=== PATIENT | male | born 1965 | race Caucasian/White ===

== ENCOUNTER 2017-02-09 07:30 | Inpatient (IN) | payer OTHER ==
[2017-02-16] MEDS ORDERED: LR 1,000 ML IV ONE (06:30)
[2017-02-16] MEDS ORDERED: THROMBIN (BOVINE) 5,000 UNIT VIAL TP ONE (06:33)
[2017-02-16] MEDS ORDERED: BUPIVACAINE/EPI 0.25% 30 ML SDV ONE (06:34)
[2017-02-16] MEDS ORDERED: BACITRACIN 50,000 UNITS/10 ML SYR IRR ONE (06:34)
[2017-02-16] MEDS ORDERED: MIDAZOLAM 2 MG/2 ML VIAL ONE (07:05)
[2017-02-16] MEDS ORDERED: PROPOFOL/EMULSION 500 MG/50 ML BOTTLE IV ONE ×3 (07:08→09:16)
[2017-02-16] MEDS ORDERED: fentaNYL 250 MCG/5 ML INJ ONE (07:20)
[2017-02-16] MEDS ORDERED: TEMAZEPAM 15 MG CAP PO PRN (07:27)
[2017-02-16] MEDS ORDERED: HYDROmorphONE/DILAUDID 6 MG/30 ML PCA IV PRN (07:27)
[2017-02-16] MEDS ORDERED: BISACODYL 10 MG SUPP PR PRN (07:27)
[2017-02-16] MEDS ORDERED: GABAPENTIN 300 MG CAP PO PRN (07:27)
[2017-02-16] MEDS ORDERED: POLYETHYLENE GLYCOL 3350 17 GM PKT PO PRN (07:27)
[2017-02-16] MEDS ORDERED: MAGNESIUM HYDROXIDE 30 ML UDCUP PO PRN (07:27)
[2017-02-16] MEDS ORDERED: diphenhydrAMINE 25 MG CAP PO PRN ×2 (07:27)
[2017-02-16] MEDS ORDERED: DIAZEPAM 10 MG/2 ML SYR IVP PRN (07:27)
[2017-02-16] MEDS ORDERED: ONDANSETRON 4 MG/2 ML VIAL IVP PRN (07:27)
[2017-02-16] MEDS ORDERED: traMADol 50 MG TAB PO PRN (07:27)
[2017-02-16] MEDS ORDERED: ALPRAZolam 0.5 MG TAB PO PRN (07:27)
[2017-02-16] MEDS ORDERED: NALOXONE HCL 0.4 MG/ML INJ IVP PRN (07:27)
[2017-02-16] MEDS ORDERED: ACETAMINOPHEN 325 MG TAB PO PRN (07:27)
[2017-02-16] MEDS ORDERED: NS W/ 20 KCl/L 1,000 ML IV SCH (07:30)
[2017-02-16] MEDS ORDERED: ceFAZolin 2 GM/DEXTROSE 100 ML IV ONE (08:00)
[2017-02-16] MEDS ORDERED: fentaNYL 100 MCG/2 ML INJ ONE ×2 (10:57→11:46)
[2017-02-16] MEDS ORDERED: HYDROmorphONE/DILAUDID 1 MG/ML SYR ONE ×2 (11:46→12:13)
--- NOTE | 2017-02-16 12:19 | SOAPPROG ---
SOAP Progress Note Assessment/Plan: Post Op Visit: S: Awake and alert. NAD. Pt with expected lower back pain O: AFVSS/PERRLA/EOMI no droop CN 2-12 grossly intact +lt touch 5/5 BUE/BLE = CDI ARLETTE in place A/P: 51 yo male that is s/p removal of Coflex hardware with new L4/5 TLIF -post op orders in -brace on when out of bed -pt seen by Dr Rosenthal -call with any questions or concerns 02/16/17 12:16 Objective: Microbiology 02/16/17 08:20 Gram Stain - Final Other - Eswab ICD10 Worksheet Patient Problems: Problems Problem Status Onset Arthrodesis status Acute Hardware failure Acute Lumbar radicular pain Acute Lumbar stenosis Acute - ICD10 Problem Qualifiers (1) Lumbar radicular pain (2) Lumbar stenosis (3) Hardware failure (4) Arthrodesis status
--- NOTE | 2017-02-16 13:09 | GOP ---
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 POSTOPERATIVE DIAGNOSIS: Failure posterior interspinous process Coflex device with recurrent bilate ral recess stenosis at L4-5, right greater than left foraminal stenosis L4-5, chronic right lumbosac ral radiculopathy, lumbar spondylosis, lumbar degenerative disk disease, and lumbar facet arthropath y. PROCEDURE PERFORMED: FINDINGS: ESTIMATED BLOOD LOSS: 100 cc. INDICATIONS: The patient is a 51-year-old gentleman, who had an interspinous process device placed at L4-5 and continued to have bffmh-mbbtfra-vdsg-left radicular symptoms. An MRI demonstrated the a ppearance of bilateral recess stenosis at L4-5, and vwuoc-rgplfrh-kqke-left foraminal stenosis. CT scan demonstrated lysis of the L5 spinous process where the device had been properly applied. There was no fracture of the spinous process and no clear migration of the interspinous process device. It was in the correct position; there had simply been osteolysis around the L5 portion of the clamp. I suggested removal of the device as well as a bilateral decompression at L4-5, as well as a poste rolateral and intervertebral arthrodesis. This is the best way to achieve bony union at the L4-5 se gment, as well as decompress the exiting foraminal nerve roots as well as the traversing L5 roots in the spinal canal. The risk of adjacent segment disease and nerve injury was discussed. He underst ood the surgery could fail to alleviate any of his symptoms. He wanted to proceed despite these ris ks. DESCRIPTION OF PROCEDURE: The patient was taken to the operating room and placed in supine position . General anesthesia was begun. He was flipped prone onto the Chente table. Care was taken to pa d all points of contact. His back was sterilely prepped and draped in the usual fashion. A 4.5 cm scar was located over the L4-5 interspace. We opened this prior scar and extended it for a distance of 1.5 cm total. We used a plasma blade to do the dissection down the L4-L5 spinous process, and a s we approached the device and entered the space around the device, there was a large amount of sero us fluid present. We cultured this fluid to rule out infection. There was no purulence or foul sme ll. I would estimate that there was about 12-15 cc of fluid. There was osteolysis at L5, and motio n of the L5 spinous processes in the teeth of the device; they were not attached to L5 whatsoever. At L4, however, the teeth were still engaging the L4 spinous process. We took an osteotome and prie d the L4 teeth away from the spinous process, and we easily delivered the entire device. We then de nuded the facet joints bilaterally at L4-5 and there was a large amount of egvfi-llpmjyp-tuam-left f acet joint fluid. Synovial fluid present in the facet joints. As we denuded these, we encountered fluid similar to what we had seen around the Coflex device itself. Of note, as well the Coflex heaven ce appeared to be seated within the interspinous process space and was properly applied in my view. It is nicely seated. We denuded the facet joints bilaterally at L4-5, decorticated the transverse processes at L4-5, and then attached the Stealth reference frame to the L4 spinous process. Perform ed an O-arm spin and, using femoral stealth stereotaxy, placed pedicle screws bilaterally at L4 and L5. We then placed 45 mm rods down between the screws and distracted significantly between L4 and L 5. This lifted the facet joints up off the arthritic superior articular process of L5. We decortic ated the facet joints on both sides. We then drilled and harvested the L4 lamina and removed most o f the lamina, preserving only the rostral large. We also drilled off the rostral arch of L5. Under the microscope, we opened the ligament flavum above the prior laminectomy, and we were able to enco unter normal dura there. As we worked our way toward the area where the Coflex been applied, there was a lot of scar tissue and this could not be from the dura. We therefore performed medi al facetectomies on each side. On the right side, we performed a complete facetectomy. We harveste d this bone for autologous grafting purposes, and we hand drilled the rostral arch of L5, fractured this off L5, and then began to peel it up off the dura. On the left-hand side, we were very success ful in doing so, and we identified essentially the virgin L5 nerve root on the left-hand side and a great decompression was obtained all the way up in the lateral recess, up underneath and toward the L4 pedicle on the left. On the right-hand side, as we began to try to deliver this bone up off the thecal sac and the L5 nerve root, we identified the L5 nerve root, but it was very firmly adherent, and the wall of the thecal sac was adherent to the bone. We simply flipped this bone up out of the lateral recess and achieved great decompression, but we left it attached to the dura. Despite our m ultiple attempts to deliver it from the dura, it could not be easily , and elected to leave it. We then mobilized the right L5 nerve root and swept it medially. All this decompression took about 100% longer than a typical laminectomy would have taken at this level. It added about 30 nimo todd to the decompression portion of the procedure for an increase in effort for the entire intervert ebral posterolateral portion of the procedure; it increased this by at least 75% by doubling the dec ompression time. We were able to mobilize the thecal sac and remove the L4-5 disk. We roughened th e subchondral bone to create arthrodesis there. It was a large disk space and we chose a 10 mm expa ndable device and inserted it under fluoroscopic guidance. We expanded it in a torque-limited way u nder fluoroscopic guidance, and we did achieve some focal segmental lordosis. We then decorticated all the remaining posterolateral bone. We placed bone morphogenic protein into the device. We used 1 mg in the disk space. We use 0.5 mg posterolaterally, and we discarded 0.5 mg. We placed bone m orphogenic protein sponges down over the posterolateral bone bilaterally, followed by bony autograft ; we had really a large amount of this. We then relaxed distraction between L4 and L5 and compresse d to try to achieve greater lordosis in that segment. Then we final tightened all the cap screws to company specification. We then placed a subfascial drain and closed the incision in multiple layer s using Vicryl sutures. The patient was reversed from anesthesia, extubated, and transferred to the recovery room in stable condition. PROCEDURE: Posterior removal of nonsegmental hardware across the L4-5 interspace, posterolateral an d intervertebral arthrodesis at L4-5 (with difficulty modifier applied) and bilateral decompressions in the context of a prior laminectomy at L4-5 (66521), placement of biomechanical intervertebral de vice L4-5, microscope, spinal stereotaxy, posterior segmental instrumentation at L4-5 with pedicle s crew fixation at L4-5, same incision bone graft harvest. COMPLICATIONS: None. /[id number]/MODL
[2017-02-16] MEDS: FAMOTIDINE 20 MG/NACL 50 ML IV SCH ×2 (14:08→21:14)
[2017-02-16] MEDS: SENNOSIDES/DOCUSATE SODIUM TAB PO SCH ×2 (14:08→21:13)
[2017-02-16] MEDS: HYDROCODONE/APAP 10/325 TAB PO PRN ×3 (14:17→21:13)
[2017-02-16] MEDS: METHOCARBAMOL 750 MG TAB PO PRN (14:17)
[2017-02-16] MEDS: HYDROmorphONE/DILAUDID 1 MG/ML SYR IVP PRN ×2 (15:53→16:30)
[2017-02-16] MEDS: DIAZEPAM 5 MG TAB PO PRN (18:23)
[2017-02-17] MEDS: DIAZEPAM 5 MG TAB PO PRN ×3 (00:41→23:50)
[2017-02-17] MEDS: HYDROCODONE/APAP 10/325 TAB PO PRN ×4 (04:20→23:50)
--- NOTE | 2017-02-17 07:48 | NEUSURGPN ---
Date of Surgery: 02/16/17 Post Op Day: 1 Assessment/Plan: 51 yo male s/p removal ofCoflex with new TLIF at L4/5 - neuro stable - pain control - remove ARLETTE drain today - postop L-spine x-rays pending - wear brace when out of bed - PT/OT - dispo: likely home tomorrow Subjective: Having pain localized to the back. No LE pain, numbness, tingling, weakness. Objective: Awake. Alert. PERRL. EOMI Muscle strength full at 5/5 Sensation intact - Physician Discussed Patient with Dr.: [facility] Physical Exam - Vitals, I&O, Labs I and O 02/16/17 02/17/17 02/18/17 05:59 05:59 05:59 Intake Total 3200 Output Total 2840 Balance 360 Weight 90.718 kg Intake: Oral (ml) 1050 IV Intake (ml) 1050 IV Infused (ml) 1100 Famotidine 20 mg/NaCl 50 50 ml @ 200 mls/hr IV Q12HRS [facility] Rx#:[id number] NS W/ 20 KCl/L 1,000 ml @ 950 75 mls/hr IV CONT [facility] Rx #:[id number] ceFAZolin 1 GM/DEXTROSE 100 50 ml @ 200 mls/hr IV Q8HRS [facility] Rx#:[id number] Output: Urine (ml) 2475 Catheter 1300 Urinal 1175 Estimated Blood Loss (ml) 100 Wound Drainage (ml) 265 Back Chente Blake 265 Other: Number of Voids Urinal 1 Bladder Scan Volume (ml) Urinal 813 Post Void Residual Scan Volume (ml) Urinal 420 Microbiology 02/16/17 08:20 Gram Stain - Final Other - Eswab Vital Signs Temp Pulse Resp BP Pulse Ox 36.6 C 61 14 104/67 95 02/17/17 07:40 02/17/17 07:40 02/17/17 07:40 02/17/17 07:40 02/17/17 07:40 ICD10 Worksheet Patient Problems: Problems Problem Status Onset Arthrodesis status Acute Hardware failure Acute Lumbar radicular pain Acute Lumbar stenosis Acute
[2017-02-17] MEDS: SENNOSIDES/DOCUSATE SODIUM TAB PO SCH ×2 (09:38→19:38)
[2017-02-17] MEDS: FAMOTIDINE 20 MG TAB PO SCH ×2 (09:38→19:38)
[2017-02-17] MEDS: METHOCARBAMOL 750 MG TAB PO PRN ×2 (09:38→19:39)
[2017-02-17] MEDS: oxyCODONE IR 5 MG TAB PO PRN ×3 (09:38→19:38)
[2017-02-17] MEDS: FAMOTIDINE 20 MG/NACL 50 ML IV SCH (09:58)
[2017-02-17] MEDS ORDERED: FLU VACC QS 2016-17(3-64YR)/PF 0.5 ML SYR (FLUARIX QUAD) IM ONE ×2 (10:56→13:30)
[2017-02-18] MEDS: oxyCODONE IR 5 MG TAB PO PRN ×5 (04:43→21:18)
[2017-02-18] MEDS: METHOCARBAMOL 750 MG TAB PO PRN ×2 (04:44→14:18)
[2017-02-18] MEDS: HYDROCODONE/APAP 10/325 TAB PO PRN ×3 (06:12→19:40)
--- NOTE | 2017-02-18 08:19 | NEUSURGPN ---
Assessment/Plan: 51 yo male s/p removal of Coflex with new TLIF at L4/5 POD2 - neuro stable - pain control - Gram stain Negative - postop L-spine x-rays pending - LSO when out of bed - PT/OT -DVT prophx: TEDs, SCDs, Lovenox - dispo: likely home today vs tomorrow Subjective: low back pain. Denies any new leg pain, numbness or tingling Objective: NAD A&Ox3 MAEx4 03/31 and equal in BUE and BLE. Incision c/d/i - Physician Discussed Patient with .: [facility] Physical Exam - Vitals, I&O, Labs I and O 02/17/17 02/18/17 02/19/17 05:59 05:59 05:59 Intake Total 3200 500 Output Total 2840 1275 Balance 360 -775 Weight 90.718 kg Intake: Oral (ml) 1050 500 IV Intake (ml) 1050 IV Infused (ml) 1100 Famotidine 20 mg/NaCl 50 50 ml @ 200 mls/hr IV Q12HRS [facility] Rx#:[id number] NS W/ 20 KCl/L 1,000 ml @ 950 75 mls/hr IV CONT [facility] Rx #:[id number] ceFAZolin 1 GM/DEXTROSE 100 50 ml @ 200 mls/hr IV Q8HRS [facility] Rx#:[id number] Output: Urine (ml) 2475 1175 Catheter 1300 Urinal 1175 1175 Estimated Blood Loss (ml) 100 Wound Drainage (ml) 265 100 Back Chente Blake 265 100 Other: Intake Quantity Yes Sufficient Number of Voids Urinal 1 1 Bladder Scan Volume (ml) Urinal 813 Post Void Residual Scan Volume (ml) Urinal 420 Microbiology 02/16/17 08:20 Gram Stain - Final Other - Eswab Vital Signs Temp Pulse Resp BP Pulse Ox 36.7 C 59 L 16 106/61 94 02/17/17 23:07 02/17/17 23:07 02/17/17 23:07 02/17/17 23:07 02/17/17 23:07 ICD10 Worksheet Patient Problems: Problems Problem Status Onset Arthrodesis status Acute Hardware failure Acute Lumbar radicular pain Acute Lumbar stenosis Acute
[2017-02-18] MEDS: FAMOTIDINE 20 MG TAB PO SCH ×2 (08:52→21:18)
[2017-02-18] MEDS: SENNOSIDES/DOCUSATE SODIUM TAB PO SCH ×2 (08:52→21:18)
[2017-02-18] MEDS: DIAZEPAM 5 MG TAB PO PRN ×2 (11:17→21:18)
[2017-02-18] MEDS: LACTULOSE 20 GM/30 ML UDCUP PO PRN (14:18)
[2017-02-18 15:38] VITALS: O2SAT 92
[2017-02-18] MEDS ORDERED: GABAPENTIN 300 MG CAP PO SCH (21:00)
[2017-02-18] MEDS: ONDANSETRON DISINTEGRATING 4 MG TAB PO PRN (21:23)
[2017-02-19] MEDS: HYDROCODONE/APAP 10/325 TAB PO PRN (02:03)
[2017-02-19] MEDS: METHOCARBAMOL 750 MG TAB PO PRN ×2 (02:03→14:39)
[2017-02-19] MEDS: oxyCODONE IR 5 MG TAB PO PRN ×3 (05:37→14:39)
[2017-02-19] MEDS: DIAZEPAM 5 MG TAB PO PRN (05:37)
[2017-02-19] MEDS: LACTULOSE 20 GM/30 ML UDCUP PO PRN (07:30)
[2017-02-19 07:39] VITALS: BP 107/75; PULSE 84; RESP 16; TEMP 98.5
[2017-02-19] MEDS ORDERED: METOCLOPRAMIDE 10 MG/2 ML VIAL IVP PRN (08:26)
--- NOTE | 2017-02-19 08:31 | NEUSURGPN ---
Assessment/Plan: 51 yo male s/p removal of Coflex with new TLIF at L4/5 POD3 - neuro stable - pain control, added Mscontin this am - Gram stain Negative - postop L-spine x-rays with intact hardware - LSO when out of bed - PT/OT -Increase bowel protocol and anti-nausea medications -DVT prophx: TEDs, SCDs, Lovenox - dispo: likely home today vs tomorrow Subjective: Nausea, Constipation, right hip pain Objective: Mild distress, vomiting this am, A&Ox3, MAEx4 Incision c/d/i - Physician Discussed Patient with : [facility] Physical Exam - Vitals, I&O, Labs I and O 02/18/17 02/19/17 02/20/17 05:59 05:59 05:59 Intake Total 500 100 Output Total 1275 1510 Balance -775 -1410 Intake: Oral (ml) 500 100 Output: Urine (ml) 1175 1510 Catheter 800 Urinal 1175 710 Wound Drainage (ml) 100 Back Chente Blake 100 Other: Intake Quantity Yes Sufficient Number of Voids Urinal 1 1 Bladder Scan Volume (ml) Catheter 40 Urinal 345 Microbiology 02/16/17 08:20 Gram Stain - Final Other - Eswab Vital Signs Temp Pulse Resp BP Pulse Ox 36.9 C 84 16 107/75 92 02/19/17 07:37 02/19/17 07:37 02/19/17 07:37 02/19/17 07:37 02/19/17 07:37 ICD10 Worksheet Patient Problems: Problems Problem Status Onset Arthrodesis status Acute Hardware failure Acute Lumbar radicular pain Acute Lumbar stenosis Acute
[2017-02-19] MEDS: FAMOTIDINE 20 MG TAB PO SCH (08:34)
[2017-02-19] MEDS: SENNOSIDES/DOCUSATE SODIUM TAB PO SCH (08:35)
[2017-02-19] MEDS ORDERED: morphINE SR 15 MG TAB PO SCH (09:00)
[2017-02-19] MEDS ORDERED: ENOXAPARIN 40 MG/0.4 ML SYR SC SCH (09:00)
[2017-02-19] MEDS: ONDANSETRON DISINTEGRATING 4 MG TAB PO PRN (16:33)
== END 2017-02-19 16:51 | disposition home or self-care (01) | DRG 460 ==
LOC: F3N 02-16 05:47
PROVIDERS: ADMIT Neurological Surgery; ATTEND Neurological Surgery
DX: M51.36 Other intervertebral disc degeneration, lumbar region (principal); M54.17 Radiculopathy, lumbosacral region; M47.896 Other spondylosis, lumbar region; G89.29 Other chronic pain; F41.9 Anxiety disorder, unspecified; Z23 Encounter for immunization
CPT/HCPCS: 97161-GP; 97165-GO; C1713; G0008; J0690; J1170; J1200; J1650; J2250; J2405; J2704; J2765; J3010